=== PATIENT | male | born 2000 | race Caucasian/White ===

== ENCOUNTER 2022-01-27 21:39 | Emergency (ER) | payer BC, MEDICAID ==
[~2022-01-27] VITALS: Ht 162.6 cm; Wt 75.0 kg
[2022-01-27 22:12] VITALS: BP 129/93
[2022-01-28] MEDS ORDERED: AMOX500C2 PO (00:24)
[2022-01-28] MEDS ORDERED: ketorolac trometh inj. 60 MG/2 ML VIAL IM ONE (00:25)
[2022-01-28] MEDS ORDERED: amoxicillin 250mg capsule PO ONE (00:25)
[2022-01-28] MEDS ORDERED: ondansetron 4mg rapidly disintigrating tab PO ONE (00:25)
== END 2022-01-28 00:51 | disposition home or self-care (01) ==
LOC: ER 21:40
DX: K08.89 Other specified disorders of teeth and supporting structures (principal); Z79.899 Other long term (current) drug therapy; Z79.1 Long term (current) use of non-steroidal anti-inflammatories (NSAID)
CPT/HCPCS: 96372; 99283; J1885